=== PATIENT | female | born 1970 | race Caucasian/White ===

== ENCOUNTER 2018-03-14 07:48 | Emergency (ER) | payer BC ==
--- OUTSIDE RECORDS SUMMARY | 2018-03-14 08:01 | XMS REPORT ---
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 Payers Type Date Identification Numbers Payment Provider Subscriber Commercial Effective: Policy Number: BCBS Commercial Beny Pedroza 2016 [id number] PayID: [id number] [address] [place] [address] Problems Date Description Provider Status Onset: 05/30/2013 Allergic rhinitis Digiovanna, Ami, OCCUPATIONAL THERAPY AIDES TEACHER Active Onset: 07/14/2012 Heartburn Digiovanna, Ami, OCCUPATIONAL THERAPY AIDES TEACHER Active Onset: 11/12/2009 Carpal tunnel syndrome Digiovanna, Ami, OCCUPATIONAL THERAPY AIDES TEACHER Active Onset: 11/12/2009 Subjective visual disturbance Digiovanna, Ami, OCCUPATIONAL THERAPY AIDES TEACHER Active Onset: 11/12/2009 Pure hyperglyceridemia Digiovanna, Ami, OCCUPATIONAL THERAPY AIDES TEACHER Active Onset: 11/12/2009 Anxiety state Digiovanna, Ami, OCCUPATIONAL THERAPY AIDES TEACHER Active Onset: 10/19/2017 Allergy, unspecified, subsequent Digiovanna, Ami, OCCUPATIONAL THERAPY AIDES TEACHER Active encounter Onset: 10/19/2017 Kidney stone Digiovanna, Ami, OCCUPATIONAL THERAPY AIDES TEACHER Active Onset: 10/19/2017 Polyp of vocal cord or larynx Digiovanna, Ami, OCCUPATIONAL THERAPY AIDES TEACHER Active Onset: 10/19/2017 Knee pain Digiovanna, Ami, OCCUPATIONAL THERAPY AIDES TEACHER Active Onset: 10/19/2017 Vitamin D deficiency Ami Kaufman OCCUPATIONAL THERAPY AIDES TEACHER Active Family History Date Family Member(s) Problem(s) Comments Maternal Grandfather Cancer, Lung Maternal Grandmother Non Insulin Dependent Diabetes - MGM Maternal Grandmother Heart Disease Social History Type Date Description Comments Education Highest level completed, 10th grade Marital Status Lives With Spouse Lives With and step daughters 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 Cigarette Use Former Cigarette Smoker ETOH Use Occasionally consumes alcohol Smoking Patient is a former smoker quit 2004 Daily Caffeine Consumes on average 1 cup of coffee per day Allergies, Adverse Reactions, Alerts Date Description Reaction Status Severity Comments 11/17/2014 NKDA active Medications Medication Date Status Form Strength Qnty SIG Indications Ordering Provider Vitamin D3 High 10/20/ Active Capsules 1000Unit OTC 1 cap PO E55.9 Digiovann Potency 2016 daily a, Ami, OCCUPATIONAL THERAPY AIDES TEACHER Meloxicam 07/21/ Active Tablets 7.5mg 90tab 1 po M25.562 Digiovann 2015 s daily, a, take with Ami, food as OCCUPATIONAL THERAPY AIDES TEACHER needed Venlafaxine HCL 07/11/ Active Tablets 37.5mg 90tab 1 by mouth F41.8 Digiovann 2012 s every day a, Ami, OCCUPATIONAL THERAPY AIDES TEACHER Flonase 09/29/ Active Suspension 50mcg/Act 16gm 1 spray T78.40xD Digiovann 2010 per a, nostril qd Ami, regularly OCCUPATIONAL THERAPY AIDES TEACHER Loratadine / Active Tablets 10mg 1 po qd T78.40xD Unknown 0000 Nitrofurantoin / Active Capsules 100 1 by mouth N39.0 Unknown ER 0000 every day as needed prior to SA N20.[address]op[address] 40mg 90tabs 1 every R12 Digiovanna, Sodium morning Ami, OCCUPATIONAL THERAPY AIDES TEACHER Multi Adult Active Chewtabs 1 by mouth Z00. Unknown Gummies every day 00 Amoxicillin/Clav 10/02/2017 - Hx Tablets 875-12 20tabs 1 by mouth Digiovanna, ulanate 10/12/2017 5mg every 12 Ami, OCCUPATIONAL THERAPY AIDES TEACHER Potassium hours for 10 days Nitrofurantoin 07/24/2015 - Hx Capsules 100mg 14caps 1 by mouth N39. Digiovanna, Monohyd Macro 07/31/2015 twice a day 0 Ami, OCCUPATIONAL THERAPY AIDES TEACHER for 7 days Multi Vitamin 11/17/2014 - Hx Tablets 1 po daily Z00. Digiovanna, Daily 03/05/2018 00 Ami, OCCUPATIONAL THERAPY AIDES TEACHER Benzonatate 11/17/2014 - Hx Capsules 200mg 30caps 1 by mouth 466. Digiovanna, 11/27/2014 every 8 0 Ami, OCCUPATIONAL THERAPY AIDES TEACHER hours as needed for cough, may cause drowsiness Transderm-Scop 11/30/2012 - Hx Patches 1.5mg 3Units apply one Digiovanna, 04/16/2015 72HR patch and Ami, OCCUPATIONAL THERAPY AIDES TEACHER leave in place for 72 hours Cranberry - Hx Capsules 250mg Unknown 04/16/2015 Immunizations CPT Code Status Date Vaccine Reaction Lot # [id number] Given 08/03/2017 Flu Vaccine NOS Q2035 Given 07/17/2016 Afluria Imunization [facility] Q2035 Given 08/16/2015 Afluria Imunization 05284 Given 08/18/2014 Afluria Or Fluvirin Flu Vac Intramuscular 55193 Given 05/19/2011 Tdap (Adacel) Ages 7 And Above Only 64880 Given 03/04/2005 Immunization Td 7 Yrs Or Older Vital Signs Date Vital Result Comment 03/05/2018 Body Temperature 99.0 F tympanic Weight 149.00 lb Heart Rate 68 /min BP Systolic 112 mmHg BP Diastolic 70 mmHg Respiratory Rate 16 /min Height 65.5 inches 5'5.50" BMI (Body Mass Index) 24.4 kg/m2 10/19/2017 Weight 147.00 lb Heart Rate 62 /min BP Systolic 110 mmHg BP Diastolic 70 mmHg Respiratory Rate 14 /min Height 65.5 inches 5'5.50" BMI (Body Mass Index) 24.1 kg/m2 08/31/2017 Weight 145.00 lb Heart Rate 65 /min BP Systolic 142 mmHg BP Diastolic 79 mmHg Height 65.5 inches BMI (Body Mass Index) 23.8 kg/m2 10/20/2016 Weight 152.00 lb Heart Rate 74 /min BP Systolic 120 mmHg BP Diastolic 76 mmHg Respiratory Rate 18 /min Height 65.5 inches 5'5.50" BMI (Body Mass Index) 24.9 kg/m2 09/17/2016 Weight 150.00 lb Heart Rate 74 /min BP Systolic 110 mmHg BP Diastolic 68 mmHg Respiratory Rate 16 /min Height 65.5 inches 5'5.50" 04/21/16 BMI (Body Mass Index) 24.6 kg/m2 07/21/2016 Weight 146.00 lb Heart Rate 72 /min BP Systolic 110 mmHg BP Diastolic 70 mmHg Respiratory Rate 16 /min Height 65.5 inches 5'5.50" BMI (Body Mass Index) 23.9 kg/m2 04/21/2016 Weight 144.00 lb Heart Rate 74 /min BP Systolic 110 mmHg BP Diastolic 70 mmHg Respiratory Rate 18 /min Height 65.5 inches 5'5.50" 07/24/15 BMI (Body Mass Index) 23.6 kg/m2 10/16/2015 Weight 150.00 lb Heart Rate 74 /min BP Systolic 110 mmHg BP Diastolic 62 mmHg Respiratory Rate 18 /min Height 65.5 inches 5'5.50" 07/24/15 BMI (Body Mass Index) 24.6 kg/m2 07/24/2015 Body Temperature 99.5 F Weight 143.00 lb Heart Rate 72 /min BP Systolic 112 mmHg BP Diastolic 74 mmHg Respiratory Rate 18 /min Height 65.5 inches 5'5.50" BMI (Body Mass Index) 23.4 kg/m2 04/16/2015 Weight 142.00 lb Heart Rate 58 /min BP Systolic 110 mmHg BP Diastolic 68 mmHg Respiratory Rate 18 /min Height 65.5 inches 5'5.50" BMI (Body Mass Index) 23.3 kg/m2 12/07/2014 Weight 146.00 lb Heart Rate 74 /min BP Systolic 110 mmHg BP Diastolic 68 mmHg Respiratory Rate 18 /min Height 65.5 inches 5'5.50" BMI (Body Mass Index) 23.9 kg/m2 11/17/2014 Body Temperature 98.3 F Weight 147.00 lb Heart Rate 77 /min BP Systolic 124 mmHg BP Diastolic 74 mmHg Respiratory Rate 19 /min Height 65.5 inches 5'5.50" O2 % BldC Oximetry 97 % Ra BMI (Body Mass Index) 24.1 kg/m2 10/09/2014 Weight 147.00 lb Heart Rate 68 /min BP Systolic 112 mmHg BP Diastolic 64 mmHg Respiratory Rate 18 /min Height 65.5 inches 5'5.50" 08/21/2014 Weight 145.00 lb Heart Rate 80 /min BP Systolic 112 mmHg BP Diastolic 68 mmHg Respiratory Rate 18 /min Height 65.5 inches 5'5.50" 04/10/2014 Weight 142.00 lb Heart Rate 80 /min BP Systolic 126 mmHg BP Diastolic 82 mmHg Respiratory Rate 16 /min Height 65.5 inches 5'5.50" 12/23/2013 Weight 147.00 lb Heart Rate 72 /min BP Systolic 122 mmHg BP Diastolic 76 mmHg Respiratory Rate 16 /min 12/12/2013 Weight 146.00 lb Heart Rate 78 /min BP Systolic 134 mmHg R/Reg BP Diastolic 76 mmHg R/Reg Respiratory Rate 17 /min Results Test Date Test Result H/L Range Note Laboratory test finding 10/12/2017 Magnesium 2.1 mg/dL 1.5-2.7 1 Laboratory test finding 10/12/2017 Vit D25oh 42 ng/mL 31-100 1 TSH 1.90 uIU/mL 0.35-4.94 1 Lipid 10/12/2017 Cholesterol 207 mg/dL High 50-199 1 Triglycerides 238 mg/dL High 30-200 1 HDL 63 mg/dL 35-85 1, 2 Chol/ HDL Ratio 3.3 ratio Low 3.7-5.6 1 VLDL 48 mg/dL High 2-29 1 LDL (Calc) 97 mg/dL 20-99 1, 3 CBC With Auto Diff 10/12/2017 WBC 8.2 K/uL 4.1-11.0 1 RBC 4.14 M/uL 4.00-5.40 1 Hemoglobin 12.7 gm/dL 12.0-16.0 1 Hematocrit 37.6 % 36.0-47.0 1 MCV 90.9 fL 80.0-97.0 1 MCH 30.6 pg 27.0-32.0 1 MCHC 33.6 g/dL 32.0-36.0 1 RDW 12.3 % 11.5-14.5 1 PLT Count 254 K/ul 140-400 1 MPV 8.1 FL 7.1-10.7 1 Neutrophil 57.8 % 35.0-75.0 1 Lymphocyte 32.5 % 16.0-52.0 1 Monocyte 7.9 % 2.0-10.0 1 Eosinophil 1.4 % 0.0-5.0 1 Basophil 0.4 % 0.0-4.0 1 Abs Neutrophils 4.7 K/uL 2.1-8.0 1 Abs Lymphocytes 2.7 K/uL 0.8-5.5 1 Abs Monocytes 0.6 K/uL 0.1-1.0 1 Abs Eosinophils 0.1 K/uL 0.0-0.5 1 Abs Basophils 0.0 K/uL 0.0-0.3 1 Comprehensive Metabolic (CMP) 10/12/2017 Sodium 141 mmol/L 135-146 1, 4 Potassium 3.9 mmol/L 3.5-5.2 1 Chloride# 105 mmol/L 97-110 1, 5 Carbon Dioxide 25 mmol/L 24-34 1 Glucose 87 mg/dL 70-105 1 Creatinine 0.7 mg/dL 0.5-1.4 1 Calcium 9.6 mg/dL 8.5-10.2 1 Total Protein 6.6 g/dL 6.0-8.0 1 Albumin 4.5 g/dL 3.6-4.9 1 Globulin 2.1 g/dL 2.0-3.5 1 A/G Ratio 2.1 Ratio 1.0-2.2 1 Total Bilirubin 0.8 mg/dL 0.1-1.3 1 Alkaline Phosphatase 56 U/L 24-140 1 Alt 17 U/L 3-42 1 Ast 21 U/L 8-42 1 Jenn Egfr >60 >60 1, 6 Non Jenn Egfr >60 >60 1, 7 Anion Gap 11 mmol/L 7-16 1, 8 BUN 13 mg/dL 6-26 1 230 Ua Routine 08/31/2017 Ua PH 5.5 1 5.0-7.5 Ua Specific Honor 1.020 1 1.003-1.030 Ua Urobilinogen 0.2 E.U./dL 0.0-1.0 Urine Culture 01/22/2017 Urine Culture ENTEROCOCCUS DWAIN <SEE NOTE> 9, 10 Quantity 50,000 - 100,000 <SEE NOTE> 9, 11 Ast-GP67 01/22/2017 Penicillin G 2 9 Tetracycline >=16 9 Nitrofurantoin <=16 9 Ampicillin <=2 9 Ciprofloxacin <=0.5 9 Levofloxacin 0.5 9 Vancomycin 2 9 Laboratory test finding 01/22/2017 BUN 14 mg/dL 7-18 12 Creatinine 0.7 mg/dL 0.6-1.3 12 Basic (BMP) 04/21/2016 Sodium 137 mmol/L 134-142 Potassium 4.2 mmol/L 3.5-5.2 Chloride 104 mmol/L 97-109 Carbon Dioxide 28 mmol/L 24-34 Glucose 93 mg/dL 70-105 BUN 15 mg/dL 6- Creatinine 0.7 mg/dL 0.5-1.4 Calcium 9.7 mg/dL 8.5-10.2 Anion Gap 9 mmol/L 6-14 Non Jenn Egfr >60 >60 13 Jenn Egfr >60 >60 14 Lipid 04/21/2016 Cholesterol 208 mg/dL High 50-199 Triglycerides 181 mg/dL 30-200 HDL 48 mg/dL 35-85 15 Chol/ HDL Ratio 4.3 ratio 3.7-5.6 VLDL 36 mg/dL High 2-29 LDL (Calc) 124 mg/dL High 20-99 16 Laboratory test finding 04/21/2016 Magnesium 2.2 mg/dL 1.5-2.7 Laboratory test finding 07/24/2015 Urine Culture Microbiology res <SEE 17 NOTE> Laboratory test finding 04/09/2015 Magnesium 2.1 mg/dL 1.5-2.7 18 Lipid 04/09/2015 Cholesterol 186 mg/dL 50-199 18 Triglycerides 201 mg/dL High 30-200 18 HDL 48 mg/dL 35-85 18, 19 Chol/ HDL Ratio 3.9 ratio 3.7-5.6 18 VLDL 40 mg/dL High 2-29 18 LDL (Calc) 98 mg/dL 20-99 18, 20 Laboratory test finding 04/09/2015 TSH 2.10 uIU/mL 0.35-4.94 18 Basic (BMP) 04/09/2015 Sodium 136 mmol/L 134-142 18 Potassium 4.1 mmol/L 3.5-5.2 18 Chloride 102 mmol/L 97-109 18 Carbon Dioxide 28 mmol/L 24-34 18 Glucose 83 mg/dL 70-105 18 BUN 13 mg/dL 6-26 18 Creatinine 0.7 mg/dL 0.5-1.4 18 Calcium 9.4 mg/dL 8.5-10.2 18 Anion Gap 10 mmol/L 6-14 18 Non Jenn Egfr >60 >60 18, 21 Jenn Egfr >60 >60 18, 22 Laboratory test finding 10/09/2014 Culture Urine See Note 23 Laboratory test finding 04/03/2014 BUN 18.0 mg/dL 7.0-18.0 BUN/Creat Ratio 22.5 ratio High 12.0-20.0 Calcium 9.6 mg/dL 8.7-10.5 Chloride 106.0 mmol/L 98.0-107.0 Co2 27.0 mmol/L 22.0-30.0 Creatinine-Serum 0.8 mg/dL 0.7-1.2 Glucose 87.0 mg/dL 75.0-110.0 Magnesium 2.3 1.7-2.3 Potasium 4.1 mmol/L 3.6-5.0 Sodium 140.0 mmil/L 137.0-145.0 TSH 1.43 uIU/ml 0.50-6.00 eGFR 82.8 Lipid Panel 04/03/2014 Chol/HDL Ratio 3.7 ratio Cholesterol 183.0 mg/dL 50.0-199.0 HDL 50.0 mg/dL 29.0-86.0 LDL, Calculated 107.4 mg/dL 20.0-129.0 Triglycerides 128.0 mg/dL 30.0-249.0 vLDL 25.6 ng/dL Laboratory test finding 12/12/2013 H. Pylori Stool Antigen Negative Negative 24 Culture Urine See Note 25 1 to be done Oct 2017 2 Per NCEP ATP III Guidelines: Results lower than 40 mg/dL are suggestive of increased risk for coronary artery disease. Results > or=to 60 mg/dL are considered a negative risk factor. 3 Per NCEP ATP III Guidelines: Normal Population <130 Patients with medical conditions: CHD/DM Optimal: <100 Borderline high: 130-159 High: 160-189 Very high: >189 4 Updated reference range on new analyzer 5 Updated reference range on new analyzer 6 Concerning GFR Guidelines for Americans: Normal function or mild renal disease, if clinically at risk: >/=60 mL/min Moderately decreased: 30-59 Severely decreased: 15-29 Renal failure: <15 7 Concerning GFR Guidelines: Normal function or mild renal disease, if clinically at risk: >/=60 mL/min Moderately decreased: 30-59 Severely decreased: 15-29 Renal failure: <15 Glomerular Filtration Rate (GFR) is estimated based on the MDRD equation, which assumes a steady state for creatinine as recommended by the National Kidney Disease Education Program in conjunction with the National Institutes of Health and the National Kidney Foundation. Clinical conditions in which it may be necessary to measure GFR by using clearance methods include extremes of age and body size, severe malnutrition or obesity, diseases of skeletal muscle, paraplegia or quadriplegia, vegetarian diet, rapidly changing kidney function, and calculation of the dose of potentially toxic drugs that are excreted by the kidneys. 8 Updated reference range on new analyzer 9 Z87.440 R31.9 10 ENTEROCOCCUS FAECALIS 11 50,000 - 100,000 CFU/mL 12 R31.9 13 Concerning GFR Guidelines: Normal function or mild renal disease, if clinically at risk: >/=60 mL/min Moderately decreased: 30-59 Severely decreased: 15-29 Renal failure: <15 Glomerular Filtration Rate (GFR) is estimated based on the MDRD equation, which assumes a steady state for creatinine as recommended by the National Kidney Disease Education Program in conjunction with the National Institutes of Health and the National Kidney Foundation. Clinical conditions in which it may be necessary to measure GFR by using clearance methods include extremes of age and body size, severe malnutrition or obesity, diseases of skeletal muscle, paraplegia or quadriplegia, vegetarian diet, rapidly changing kidney function, and calculation of the dose of potentially toxic drugs that are excreted by the kidneys. 14 Concerning GFR Guidelines for Americans: Normal function or mild renal disease, if clinically at risk: >/=60 mL/min Moderately decreased: 30-59 Severely decreased: 15-29 Renal failure: <15 15 Per NCEP ATP III Guidelines: Results lower than 40 mg/dL are suggestive of increased risk for coronary artery disease. Results > or=to 60 mg/dL are considered a negative risk factor. 16 Per NCEP ATP III Guidelines: Normal Population <130 Patients with medical conditions: CHD/DM Optimal: <100 Borderline high: 130-159 High: 160-189 Very high: >189 17 Microbiology results SOURCE MIDU COLONY COUNT >100,000 CFU/ML PRELIMINARY RESULT Gram Negative Ian. ID & Sensitivity to Follow. FINAL RESULT Escherichia coli (Isolate 1) Sensitivity Analysis Isolate 1 --------- AMIKACIN <=16 S AMPICILLIN <=8 S AMPICILLIN/SULBACTAM <=8/4 S CEFAZOLIN <=2 S CEFEPIME <=8 S CEFTAZIDIME <=1 S CEFTRIAXONE <=1 S CIPROFLOXACIN <=1 S ERTAPENEM <=0.5 S GENTAMYCIN <=2 S IMIPENEM <=1 S LEVOFLOXACIN <=2 S NITROFURANTOIN <=32 S PIPERACILLIN/TAZOBACTAM <=16 S TETRACYCLINE <=4 S TOBRAMYCIN <=4 S TRIMETHOPRIM/SULFAMETHOXAZ <=2/38 S S=Sensitive;I=Indeterminate;R=Resistant 18 1 week prior to OV to be done 04/2015 19 Per NCEP ATP III Guidelines: Results lower than 40 mg/dL are suggestive of increased risk for coronary artery disease. Results > or=to 60 mg/dL are considered a negative risk factor. 20 Per NCEP ATP III Guidelines: Normal Population <130 Patients with medical conditions: CHD/DM Optimal: <100 Borderline high: 130-159 High: 160-189 Very high: >189 21 Concerning GFR Guidelines: Normal function or mild renal disease, if clinically at risk: >/=60 mL/min Moderately decreased: 30-59 Severely decreased: 15-29 Renal failure: <15 Glomerular Filtration Rate (GFR) is estimated based on the MDRD equation, which assumes a steady state for creatinine as recommended by the National Kidney Disease Education Program in conjunction with the National Institutes of Health and the National Kidney Foundation. Clinical conditions in which it may be necessary to measure GFR by using clearance methods include extremes of age and body size, severe malnutrition or obesity, diseases of skeletal muscle, paraplegia or quadriplegia, vegetarian diet, rapidly changing kidney function, and calculation of the dose of potentially toxic drugs that are excreted by the kidneys. 22 Concerning GFR Guidelines for Americans: Normal function or mild renal disease, if clinically at risk: >/=60 mL/min Moderately decreased: 30-59 Severely decreased: 15-29 Renal failure: <15 23 Organism 1 ! ESCHERICHIA COLI Quantity ! > 100,000 CFU/mL ESCHERICHIA COLI Target Route Dose M.I.C. RX AB COST ------ ----- -------- ------ - - ------ NITROFURANTOIN 32 S TRIMETHOPRIM/SULFAMETHOXAZOLE <=20 S AMPICILLIN 4 S CEFAZOLIN <=4 S AMPICILLIN/SULBACTAM <=2 S CIPROFLOXACIN <=0.25 S PIPERACILLIN/TAZOBACTAM <=4 S CEFTAZIDIME <=1 S CEFTRIAXONE <=1 S CEFEPIME <=1 S LEVOFLOXACIN <=0.12 S IMIPENEM <=0.25 S GENTAMICIN & lt;=1 S TOBRAMYCIN <=1 S 24 Performed at: - [facility] [id number] Poultry Field Service Technician: Sofi Adrian MD, Phone: [phone] 25 COLONY COUNT ! >100,000 CFU/ml Organism 1 ! ESCHERICHIA COLI QUANTITY ! MANY ESCHERICHIA COLI Target Route Dose M.I.C. RX AB COST ------ ----- -------- ------ -- ------ NITROFURANTOIN <=16 S TRIMETHOPRIM/ SULFAMETHOXAZOLE <=20 S AMPICILLIN >=32 R CEFAZOLIN <=4 S AMPICILLIN/SULBACTAM >= 32 R CIPROFLOXACIN <=0.25 S PIPERACILLIN/TAZOBACTAM <=4 S CEFTAZIDIME <= 1 S CEFTRIAXONE <=1 S CEFEPIME <=1 S LEVOFLOXACIN <=0.12 S IMIPENEM < =0.25 S GENTAMICIN <=1 S TOBRAMYCIN <=1 S Procedures Date CPT Code Description Status Comment 10/19/2017 21308 Screening Hearing Test Completed 09/28/2017 Colonoscopy Completed Document: 09/28/17 - Colonoscopy 04/06/2017 Mammogram Completed Document: 01/15/15 - Digital Mammo Screen Bilat Document: 05/19/16 - Digital Mammography Screening Document: 04/06/17 - Screening Mammogram Bilateral 07/21/2016 09275 X-Ray Knee Complete Completed W/Obliques & Tunnel And/Or Standing Views 11/17/2014 96252 Measure Blood Oxygen Level Completed Single Determination 12/25/2011 44192 Colonoscopy Flexible Completed repeat in 5 years Diagnostic 12/08/2011 16955 Mammography Unilateral Completed 2011 14413 Mammography Unilateral Completed 39716 Mammography Unilateral Completed Normal Encounters Type Date Location Provider CPT E/M Dx Office Visit 10/19/2017 9:00a [facility] Ami Kaufman, OCCUPATIONAL THERAPY AIDES TEACHER 76569 Z00.00 E78.1 R12 F41.8 E55.9 T78.40xD M25.562 J38.1 N20.0 Z68.24 Office Visit 10/20/2016 10:00a [facility] Ami Kaufman, [place] 71007 Z00.00 R12 E78.1 F41.8 T78.40xD M25.562 N39.0 Z68.24 E55.9 Office Visit 09/17/2016 1:45p [facility] Domo Kaufmania, OCCUPATIONAL THERAPY AIDES TEACHER 68616 M25.562 Office Visit 07/21/2016 10:30a [facility] Ami Kaufman, OCCUPATIONAL THERAPY AIDES TEACHER 89558 M25.562 Office Visit 04/21/2016 9:00a [facility] Ami Kaufman, OCCUPATIONAL THERAPY AIDES TEACHER 15791 R12 F41.8 T78.40xD N39.0 Z12.31 Z68.23 E78.1 Office Visit 10/16/2015 9:00a [facility] Domo Kaufmania, OCCUPATIONAL THERAPY AIDES TEACHER 00068 F41.8 R12 T78.40xD Office Visit 07/24/2015 4:15p [facility] Domo Kaufmania, OCCUPATIONAL THERAPY AIDES TEACHER 50796 N39.0 Office Visit 04/16/2015 9:00a [facility] Ami Kaufman, OCCUPATIONAL THERAPY AIDES TEACHER 97083 787.1 300.09 272.1 995.3 Office Visit 12/07/2014 1:00p [facility] [place] [address] 840.9 Office Visit 11/17/2014 10:45a [facility] [place] [place] [address] 466.0 Plan of Care Future Appointment(s):10/18/2018 9:00 am - Schedule, Laboratory at [facility]2017 9:00 am - Ami Kaufman OCCUPATIONAL THERAPY AIDES TEACHER at [facility]03/05/2018 - Ami Kaufman , NPR20.8 Other disturbances of skin sensationNew Xrays:Spine, Cervical CompleteComments:Will check c-spine films and consider PT and/or manipulationMonitor symptoms and continue stretchingexercises as needed.Follow up:PRN pending x-rays
[2018-03-14 08:08] VITALS: BP 116/69
--- NOTE | 2018-03-14 08:58 | UC ---
Abdominal Pain Female HPI - HPI Summary HPI Summary: Pt here w/ GI sx x 1 month. Started as upper ab fullness and bloating then she developed diarrhea this past week - watery. Denies fever, chills, nausea, focal pain, dysphagia, pain w/ eating, hematochezia, melena. She takes pantoprazole for a hiatal hernia she's had for a few years - this does not feel the same as she typically gets chest pain when this is acting up - no chest pain at this time. She denies h/o ulcer or GI bleed. 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 Rivas and had an endoscope and colonoscopy a few months ago - benign. She also reports hysterectomy of uterus only - still has ovaries. This was performed as she had endometriosis and adenomyosis. Also has h/o recurrent UTI's after intercourse - was told to take anbx after to prevent UTI. She has taken anbx in the past recurrently but has been avoiding as of late. Denies UTI sx today. Called PCP who didn't feel anything was wrong - no workup, despite pt's concerns that these sx are interfering w/ her quality of life - has not been exercising due to discomfort. hence her visit here. - History of Current Complaint Hx Obtained From: Patient Hx Last Menstrual Period: n/a Pain Intensity: 1 <Cherry Chavez - Last Filed: 03/14/18 09:04> <Luisa Patel - Last Filed: 03/14/18 10:12> - History of Current Complaint Chief Complaint: UCAbdominalPain Stated Complaint: STOMACH ACHE Time Seen by Provider: 03/14/18 08:36 Allergies/Adverse Reactions: Allergies Allergy/AdvReac Type Severity Reaction Status Date / Time Yeast AdvReac GI Upset Verified 03/14/18 08:04 histamines Allergy See Comment Uncoded 05/01/16 16:54 seasonal allergies Allergy Runny Nose Uncoded 05/01/16 16:54 Home Medications: Home Medications [place]-3 Fatty Acids/Fish Oil [Fish Oil 1,000 mg Capsule] 1 each PO DAILY [History Confirmed 03/14/18] Venlafaxine EXT RELEASE CAP* [Effexor Xr CAP*] 37.5 mg PO DAILY 03/14/18 [ History Confirmed 03/14/18] PMH/Surg Hx/FS Hx/Imm Hx Previously Healthy: Yes GI/ History: Other - hiatal hernia, HPV polyps in esophagus/colon - follows w / Rob; hysterectomy d/t endometriosis and adenomyosis - still has ovaries Other GI/ History: No IBS - Surgical History Surgical History: Yes Surgery Procedure, Year, and Place: hysterectomy. bunionectomy. uterine ablation. THROAT NODULE REMOVED x2, last bx 12/2014 - Family History Known Family History: Positive: Cardiac Disease, Hypertension, Other - dyslipidemia - Social History Occupation: Employed Full-time Lives: With Family Alcohol Use: Daily Alcohol Amount: 2-3 glasses of wine Substance Use Type: None Smoking Status (MU): Former Smoker Type: Cigarettes When Did the Patient Quit Smoking/Using Tobacco: 10 YRS AGO <Cherry Chavez - Last Filed: 03/14/18 09:04> Review of Systems Constitutional: Negative Skin: Negative Eyes: Negative ENT: Negative Respiratory: Negative Cardiovascular: Negative Gastrointestinal: Diarrhea, Other - bloating Genitourinary: Negative Motor: Negative Neurovascular: Negative Musculoskeletal: Negative Neurological: Negative Psychological: Negative Is Patient Immunocompromised?: No All Other Systems Reviewed And Are Negative: Yes <Cherry Chavez - Last Filed: 03/14/18 09:04> Physical Exam Triage Information Reviewed: Yes Appearance: Well-Appearing, No Pain Distress, Well-Nourished Vital Signs: Initial Vital Signs Temp 98.6 F 03/14/18 08:00 Pulse 62 03/14/18 08:00 Resp 16 03/14/18 08:00 BP 116/69 03/14/18 08:00 Pulse Ox 100 03/14/18 08:00 Vital Signs Reviewed: Yes Eye Exam: Normal Eyes: Positive: Conjunctiva Clear ENT Exam: Normal - mucosa moist Dental Exam: Normal Neck exam: Normal Respiratory Exam: Normal Cardiovascular Exam: Normal Abdomen Description: Positive: No Organomegaly, Soft, Distended - mild, Other: - mild RLQ TTP (pt reports as discomfort) - no rebounding. Negative: CVA Tenderness (R), CVA Tenderness (L) Bowel Sounds: Positive: Present Pelvic Exam: Positive: Other - deferred Musculoskeletal Exam: Normal Neurological Exam: Normal Psychological Exam: Normal Skin Exam: Normal <Cherry Chavez - Last Filed: 03/14/18 09:04> Vital Signs: Initial Vital Signs Temp 98.6 F 03/14/18 08:00 Pulse 62 03/14/18 08:00 Resp 16 03/14/18 08:00 BP 116/69 03/14/18 08:00 Pulse Ox 100 03/14/18 08:00 <Luisa Patel - Last Filed: 03/14/18 10:12> Abd Pain Female Course/Dx - Differential Dx/Diagnosis Provider Diagnoses: GI bloating, diarrhea, RLQ discomfort - needs w/u through PCP and/or GI. If worse in the meantime, recommend ED eval. Pt agrees w/ plan. <Cherry Chavez - Last Filed: 03/14/18 09:04> Discharge - Sign-Out/Discharge Documenting (check all that apply): Discharge/Admit/Transfer - Billing Disposition and Condition Condition: STABLE Disposition: HOME <Cherry Chavez - Last Filed: 03/14/18 09:04> - Billing Disposition and Condition Condition: STABLE Disposition: HOME <Luisa Patel - Last Filed: 03/14/18 10:12> - Discharge Plan Condition: Stable Disposition: HOME Patient Education Materials: Acute Diarrhea (ED), Gas and Bloating (ED) Referrals: Ami Kaufman [Primary Care Provider] - Additional Instructions: The definitive cause of your symptoms was not identified today however UTI was ruled out. Given your medical history of endometrisosis, adenomyosis, GI polyps, hiatal hernia, and recurrent antibiotic use, further work-up is warranted. This may include ultrasound to evaluate your reproductive organs, labs, stool culture to rule out c. diff (a bacteria caused by antibiotic use), CT scan, etc. Your PCP may order tests as necessary to better assess your symptoms. Call tomorrow to schedule an appointment. In the meantime, you may try Gas-X (simethicone) for bloating as well as a probiotic. *If in the meantime, you develop pain, bloody stools, fever, chills, nausea with vomiting, vaginal bleeding, nightsweats, extreme fatigue, go to the ED Attestation Statement User Type: Provider - I was available for consult. This patient was seen by the DES. The patient was not presented to, seen by, or examined by me. -Elidia <Luisa Patel - Last Filed: 03/14/18 10:12>
== END 2018-03-14 09:09 | disposition home or self-care (01) ==
LOC: UCCORT 07:48
DX: R14.0 Abdominal distension (gaseous) (principal); R19.7 Diarrhea, unspecified; R10.31 Right lower quadrant pain; K44.9 Diaphragmatic hernia without obstruction or gangrene; Z87.891 Personal history of nicotine dependence
CPT/HCPCS: 81003; 99211; G0463

== ENCOUNTER 2019-04-09 12:53 | Emergency (ER) | payer BC ==
--- OUTSIDE RECORDS SUMMARY | 2019-04-09 13:00 | XMS REPORT | Continuity of Care Document ---
:1970 External Reference #:[id number] Author Name Christina Whitmore M.D. Address [address] [facility] [address] [place] [address] Care Team Providers Name Role Phone Ami Kaufman FNP Care Team Information Nurse'S Companion Unavailable Ami Kaufman FNP Primary Care Physician Unavailable Payers Date Identification Numbers Payment Provider Subscriber Effective: 2008 Policy Number: [id number] [facility] Beny Pedroza Group Number: [id number] [address] [address] PayID: [id number] [place] [address] Advance Directives Description No Information Available Problems Description No Information Family History Date Family Member(s) Observation Comments Mother Gastroesophageal Reflux Disease (GERD) Mother Peptic Ulcers Social History Type Date Description Comments Sex Unknown 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[employer] ETOH Use Occasionally consumes alcohol Tobacco Use Start: Unknown End: Patient is a former smoker Unknown Recreational Drug Use Denies Drug Use Smoking Status Reviewed: 02/08/19 Patient is a former smoker Allergies, Adverse Reactions, Alerts Active Allergies Reaction Severity Comments Date Yeast 05/03/2009 Histamine Phosphate Allergic To Histamines 05/03/2009 Medications Active Medications SIG Qnty Indications Ordering Provider Date Multi-Day Vitamins 1 tablet by mouth Unknown qday Tablets Hyoscyamine Sulfate ER 1 tablet by mouth Digiovanna, qday JUDY HargroveP 0.375mg Tablets ER 12HR Venlafaxine HCL 1 tablet by mouth Sharmin Hernandez, 37.5mg qday [employer]RAPH [employer]PERATOR Tablets Pantoprazole Sodium 1 tablety by Digiovanthad, 40mg mouth qday OPHELIA Hargrove Tablets DR Oneal 1 by mouth every Unknown 10mg Capsules day Vitamin D3 Complete 1 by mouth every Unknown day Tablets Fish Oil 1 tablet by mouth Unknown 435mg Capsules qday History Medications Modicon-28 Unknown - 03/07/2019 0.5/35 Tablets Lexapro 10mg 1 po qd 30tabs Unknown - 04/2019 Tablets Acidophilus Unknown - 03/07/2019 Capsules Immunizations Description No Information Available Vital Signs Date Vital Result Comment 03/07/2019 8:38am BP Systolic 123 mmHg BP Diastolic 76 mmHg Body Temperature 98.0 F Heart Rate 67 /min Respiratory Rate 16 /min Height 65 inches 5'5" Weight 138.50 lb BMI (Body Mass Index) 23.0 kg/m2 BSA (Body Surface Area) 1.69 m2 [place] body weight in kilograms 57 kg O2 % BldC Oximetry 98 % Pain Level 0 05/03/2009 8:38am Height 65 inches 5'5" Weight 145.00 lb BMI (Body Mass Index) 24.1 kg/m2 Results Description No Information Available Procedures Date Code Description Status 07/21/2012 47365 Anesthesia, Lower Abdomen Surgery Not Otherwise Spec Completed 07/16/2012 58537 EKG Interpretation And Report Only Completed 12/25/2011 [id number] Colonoscopy Completed 08/07/2009 80348 Stress Test Interpre And Report Only Completed Encounters Type Date Location Provider Dx Diagnosis Office Visit 03/07/2019 Urology Clark Rodas N20.0 Calculus of 8:30a ANTHONY Fernandez kidney Office Visit 10/22/2009 Orthopaedic Office Cinthia Weir, 354.0 Carpal Tunnel 9:15a Syndrome Office Visit 06/18/2009 Orthopaedic Office Cinthia Weri 354.0 Carpal Tunnel 10:15a Syndrome Office Visit 05/07/2009 Orthopaedic Office Cinthia Weir 354.0 Carpal Tunnel 10:30a Syndrome Office Visit 02/05/2009 Orthopaedic Office Husam Iyer, 354.0 Carpal Tunnel 9:00a Hayley Syndrome Plan of Treatment Future Appointment(s):03/07/2020 8:45 am - Clark Rodas PA at [id number] - Clark Rodas, PAN20.0 Calculus of kidneyComments:She is remained asymptomatic and at this point I don't see any reason to do any further imaging. Call for his review. We reviewed medical expulsive therapy and she does have us prescription of Rapaflo still available should she need it.Follow-up 12 months or when necessary for symptoms
[2019-04-09 13:40] VITALS: BP 122/83
--- NOTE | 2019-04-09 13:48 | UC ---
Throat Pain/Nasal Jared HPI - HPI Summary HPI Summary: Pt had URI symptoms for one week and she is better. Today she has some laryngitis and her wanted her to be checked but she states she is feeling better. - History of Current Complaint Chief Complaint: UCGeneralIllness Stated Complaint: LOSS OF VOICE Time Seen by Provider: 04/09/19 13:48 Hx Obtained From: Patient Hx Last Menstrual Period: ablation ?: No Onset/Duration: Gradual Onset Severity: Mild Pain Intensity: 0 Cough: None Associated Signs & Symptoms: Positive: Negative - Epiglottits Risk Factors Epiglottis Risk Factors: Negative - Allergies/Home Medications Allergies/Adverse Reactions: Allergies Allergy/AdvReac Type Severity Reaction Status Date / Time Yeast AdvReac GI Upset Verified 04/09/19 13:37 histamines Allergy See Comment Uncoded 04/09/19 13:37 seasonal allergies Allergy Runny Nose Uncoded 04/09/19 13:37 Home Medications: Home Medications Hyoscyamine TAB* [Anaspaz 0.125 MG TAB*] 0.375 mg PO DAILY 04/09/19 [History Confirmed 04/09/19] PMH/Surg Hx/FS Hx/Imm Hx Previously Healthy: Yes - Surgical History Surgical History: Yes Surgery Procedure, Year, and Place: hysterectomy. bunionectomy. uterine ablation. THROAT NODULE REMOVED x2, last bx 12/2014 - Family History Known Family History: Positive: Cardiac Disease, Hypertension, Other - dyslipidemia - Social History Alcohol Use: Weekly Alcohol Amount: weekends Substance Use Type: None Smoking Status (MU): Former Smoker Type: Cigarettes When Did the Patient Quit Smoking/Using Tobacco: 2004 Review of Systems All Other Systems Reviewed And Are Negative: Yes ENT: Positive: Nasal Discharge - Clear nasal discharge which is improving every day. Is Patient Immunocompromised?: No Physical Exam Triage Information Reviewed: Yes Appearance: Well-Appearing, No Pain Distress, Well-Nourished Vital Signs: Initial Vital Signs Temp 98.7 F 04/09/19 13:35 Pulse 60 04/09/19 13:35 Resp 14 04/09/19 13:35 BP 122/83 04/09/19 13:35 Pulse Ox 100 04/09/19 13:35 Vital Signs Reviewed: Yes Eyes: Positive: Conjunctiva Clear ENT: Positive: Normal ENT inspection, Uvula midline Neck: Positive: Supple, Nontender, No Lymphadenopathy Respiratory: Positive: Lungs clear, Normal breath sounds, No respiratory distress, No accessory muscle use Cardiovascular: Positive: RRR, No Murmur, Pulses Normal, Brisk Capillary Refill Musculoskeletal Exam: Normal Neurological Exam: Normal Psychological Exam: Normal Skin Exam: Normal Throat Pain/Nasal Course/Dx - Course Course Of Treatment: Pt is feeling better and thinks this is only viral and left over from her URI. - Differential Dx/Diagnosis Provider Diagnosis: Laryngitis Discharge - Sign-Out/Discharge Documenting (check all that apply): Patient Departure All imaging exams completed and their final reports reviewed: No Studies - Discharge Plan Condition: Good Disposition: HOME Patient Education Materials: Laryngitis (ED) Referrals: Ami Kaufman [Primary Care Provider] - Additional Instructions: Follow up with your primary care provider as needed if no improvement. - Billing Disposition and Condition Condition: GOOD Disposition: Home
== END 2019-04-09 14:07 | disposition home or self-care (01) ==
LOC: UCCORT 12:53
DX: J04.0 Acute laryngitis (principal); J34.89 Other specified disorders of nose and nasal sinuses; Z87.891 Personal history of nicotine dependence
CPT/HCPCS: 99211; G0463